=== PATIENT | female | born 1965 | race Caucasian/White ===

== ENCOUNTER 2018-11-17 16:52 | Emergency (ER) | payer OTHER ==
[~2018-11-17] VITALS: Ht 170.2 cm; Wt 113.4 kg
[~2018-11-17 16:52] MED LIST: ADVAIR 5001 DISK W/1 IH; ALLI; CELEBREX100 MG PO; CYMBALTA60 MG PO; KLONOPIN0.125 MG/T PO; LYRICA300 MG PO; NEXIUM; RESTORIL; SEROQUEL; SYNTHROID50 MCG PO; VISTARIL; ZANTAC300 MG PO; ZOLOFT
[2018-11-17] MEDS ORDERED: SINGULAIR10 MG (17:00)
[2018-11-17] MEDS ORDERED: TRAZODONE HCL50 MG (17:01)
== END 2018-11-17 19:51 | disposition home or self-care (01) ==
LOC: ER 16:52
DX: J06.9 Acute upper respiratory infection, unspecified (principal); B34.9 Viral infection, unspecified